=== PATIENT | female | born 1985 | race Caucasian/White ===

== ENCOUNTER 2022-03-24 19:44 | Emergency (ER) | payer MEDICAID ==
[~2022-03-24] VITALS: Ht 154.9 cm; Wt 54.5 kg
[2022-03-24 20:06] VITALS: BP 113/84
== END 2022-03-24 21:13 ==
LOC: ER 19:45
DX: Z04.1 Encounter for examination and observation following transport accident (principal); Z72.89 Other problems related to lifestyle
CPT/HCPCS: 99283

== ENCOUNTER 2024-04-06 08:59 | Emergency (ER) | payer MEDICAID ==
[~2024-04-06] VITALS: Ht 154.9 cm; Wt 50.8 kg
[2024-04-06 09:32] VITALS: TEMP 98.2
[2024-04-06 10:00] VITALS: BP 131/99; PULSE 78; O2SAT 97
[2024-04-06 10:03] VITALS: RESP 16
== END 2024-04-06 10:57 | disposition left against medical advice (07) ==
LOC: ER 08:59
DX: M25.511 Pain in right shoulder (principal); Z53.21 Procedure and treatment not carried out due to patient leaving prior to being seen by health care provider

== ENCOUNTER 2024-04-07 17:40 | Emergency (ER) | payer OTHER, MEDICAID ==
[~2024-04-07] VITALS: Ht 154.9 cm; Wt 55.5 kg
[2024-04-07] MEDS ORDERED: iohexol 350MG/ML 100ml bottle IV ONE (18:39)
[2024-04-07] MEDS: ondansetron/PF 4mg/2ml inj IV STA (19:04)
[2024-04-07] MEDS: morphine 4 MG/ML inj SYRINge IV STA (19:04)
[2024-04-07] MEDS: ampicillin/sulbac 3gm/NS 100ml 100 ML IV STA (21:55)
[2024-04-07] MEDS: oxymetazoline 15 ML nasal spray NS STA (22:14)
[2024-04-07] MEDS: morphine 4 MG/ML inj SYRINge IV ONE (22:41)
[2024-04-08 01:11] VITALS: BP 129/89; PULSE 98; RESP 15; TEMP 98.2; O2SAT 98
== END 2024-04-08 01:28 | disposition short-term general hospital (02) ==
LOC: EEVIPCON 17:40 → ER 17:40
DX: S02.2XXA Fracture of nasal bones, initial encounter for closed fracture (principal); S06.0XAA Concussion with loss of consciousness status unknown, initial encounter; F17.200 Nicotine dependence, unspecified, uncomplicated; Y04.8XXA Assault by other bodily force, initial encounter; Y93.89 Activity, other specified; Y92.89 Other specified places as the place of occurrence of the external cause; Y99.8 Other external cause status
CPT/HCPCS: 70450; 70486; 70498; 96365; 96375; 96376; 99291; J0295; J2270; J2405; Q9967

== ENCOUNTER 2024-06-26 15:36 | Emergency (ER) | payer MEDICAID, OTHER ==
[~2024-06-26] VITALS: Ht 154.9 cm; Wt 53.0 kg
[2024-06-26] MEDS ORDERED: CHLO25CA10 PO (17:45)
[2024-06-26] MEDS: ketorolac trometh 15mg/ml vial 15 MG/ML ML IM ONE (18:32)
[2024-06-26 18:38] VITALS: BP 128/84; PULSE 79; RESP 16; TEMP 98.9; O2SAT 99
== END 2024-06-26 18:39 | disposition home or self-care (01) ==
LOC: ER 15:37
DX: F10.129 Alcohol abuse with intoxication, unspecified (principal); Z79.899 Other long term (current) drug therapy; Y90.9 Presence of alcohol in blood, level not specified
CPT/HCPCS: 71100; 96372; 99283; J1885

== ENCOUNTER 2025-06-18 11:26 | Emergency (ER) | payer MEDICAID ==
[~2025-06-18] VITALS: Ht 154.9 cm; Wt 52.4 kg
[~2025-06-18 11:26] MED LIST: CHLO25CA10 PO
[2025-06-18 11:27] VITALS: TEMP 98
--- NOTE | 2025-06-18 12:07 | Physician Documentation ---
History of Present Illness ~ Chief Complaint: Medical Clearance Stated Complaint: MED CLEARANCE Time Seen by MD: 11:36 Primary Medical Doctor: [facility] HPI 39-year-old female patient presents to the ED requesting medical clearance to go to [facility] for substance abuse. She states that she uses alcohol regularly her last drink was yesterday but was only half of a beer. He has two or three days ago she used cocaine and has used various other substances while living on the streets. He is not currently intoxicated and not under the influence of any substance at this time Day of Onset: Jun 18, 2025 Tetanus within 5 years?: No Medication Reconciliation Allergies: Coded Allergies: No Known Allergies (Unverified , 06/26/24) Scheduled PRN Chlordiazepoxide Hcl (Librium), 2 CAP PO Q8H PRN for anxiety Past Medical History Past Medical History: No Pertinent History Past Surgical History: no surgical history Alcohol Use: Heavy Lives In: Home Review of Systems All Other Systems at this time: Reviewed and Negative ROS As stated above in the HPI, otherwise all systems are reviewed and negative. Physical Exam Vital Signs: Temperature: 98.0, Source: Temporal, Heart Rate: 77, Respiratory Rate: 16, BP: 107/72, Pulse Oximetry: 100, Weight: 52.400 Oxygen Flow Rate: 0 Physical Exam General: Alert, no apparent distress. HEENT: PERRL, EOMI, no injection, moist mucous membranes. Neck: Full range of motion. Respiratory: Lungs clear, no respiratory distress. Chest: No accessory muscle use. Cardiovascular: Regular rate and rhythm, no murmurs. Gastrointestinal: Soft, nontender, nondistended. Bowels sounds present. Extremities: Normal range of motion, no deformity. Neurologic: Oriented x4. Psychiatric: Normal mood and affect. Skin: Normal color, warm and dry. No edema, no ecchymosis. Progress Results/Orders Results/Orders Vital Signs 06/18/25 11:27 Temp 98.0 Pulse 77 Resp 16 B/P (MAP) 107/72 Pulse Ox 100 O2 Flow Rate 0 Medical Decision Making Additional information obtaine: old records Findings Patient does not present acutely ill or in the influence of any substances. Going to medically clear her for recovery at [place] Differential Dx:Considerations: Include: Intoxication-Alcohol, Intoxication- Other drug, Personality disorder, Substance abuse disorder, Acute delirium, Closed head injury, Cervical spine injury, Skull fracture, Fracture(s), Abrasion, Contusion, Foreign body, Hematoma, Laceration, Alcohol withdrawl syndrom, Encephalopathy, Hepatitis, Medically stable, Other Departure Disposition: HOME / SELF CARE / HOMELESS Impression: Primary Impression: General medical exam Discharge Instructions: Medical Screening Exam Additional Instructions: The cleared for [facility] Referrals: NO PRIMARY CARE PROVIDER (PCP) Signature Scribe Signature: g Attestation: Scribed for Alexandru Robbins Branch Lending Officer by Alexandru Akers NP . 06/18/25 12:06 ALEXANDRU ROBBINS NP Jun 18, 2025 12:07
[2025-06-18 12:16] VITALS: BP 112/76; PULSE 78; RESP 16; O2SAT 99
== END 2025-06-18 12:18 | disposition home or self-care (01) ==
LOC: ER 11:26
DX: Z00.00 Encounter for general adult medical examination without abnormal findings (principal); F19.10 Other psychoactive substance abuse, uncomplicated; F10.90 Alcohol use, unspecified, uncomplicated; Y90.9 Presence of alcohol in blood, level not specified; Z59.02 Unsheltered homelessness
CPT/HCPCS: 99282